=== PATIENT | male | born 1985 | race Caucasian/White ===

== ENCOUNTER 2017-11-26 07:33 | Emergency (ER) | payer MEDICAID ==
[2017-11-26] MEDS ORDERED: ALBUTEROL SULFATE (0.083%) 2.5 MG/3 ML NEB INH ONE (07:55)
[2017-11-26] MEDS ORDERED: KETOROLAC 30 MG/ML VIAL IVP ONE (07:56)
[2017-11-26 08:06] LABS: HEMATOCRIT 46.9 % (42.0-52.0); HEMOGLOBIN 16.4 gm/dl (14.0-18.0); MEAN CELL VOLUME 86.2 fl (81-97); MEAN CORPUSCULAR HEMOGLOBIN 30.1 pg (27-33); MEAN PLATELET VOLUME 10.1 fl (7.4-10.4); PLATELET COUNT 156 K/uL (130-400); RED BLOOD COUNT 5.44 M/uL (4.40-5.70); RED CELL DISTRIBUTION WIDTH 13.7 % (11.5-14.5); WHITE BLOOD COUNT W/O DIFF 5.3 K/uL (4.2-12.2)
--- NOTE | 2017-11-26 08:12 | Emergency Department Record ---
History of Present Illness - General Chief Complaint: Difficulty Breathing Stated Complaint: LENY/LEG PAIN Time Seen by Provider: 11/26/17 07:44 Source: Patient Mode of Arrival: Ambulatory Limitations: No limitations - History of Present Illness Initial Comments: The patient is here due to L posterior chest sharp stabbing pain for about 5 hours. The onset was at 3am today. The pain is worse with breathing and the patient feels that he cannot take a deep breath. He denies any anterior CP, but does feel mildly SOB at times with the pleuritic L posterior chest pain. He also has been having L calf pain for about 3 weeks after getting hit there with a hockey puck. Complaint: Shortness of breath Onset/Timin -: Days(s) Severity: Moderate Severity scale (1-10): 9 Quality: Aching Consistency: Constant Improves With: Bronchodilators - Related Data Home Medications Medication Instructions Recorded Confirmed Last Taken Albuterol Sulfate [Ventolin Hfa] 1 - 2 puff IH .EVERY 4-6 HRS PRN 11/26/1711/2611/26/17 Allergies Allergy/AdvReac Type Severity Reaction Status Date / Time aspirin Allergy SWELLING Verified 11/26/17 07:43 OF THE TONGUE Travel Screening - Travel/Exposure Within Last 30 Days Have you traveled within the last 30 days?: No - Travel/Exposure Within Last Year Have you traveled outside the [place] in the last year?: No - Additonal Travel Details Have you been exposed to anyone with a communicable illness?: No - Travel Symptoms Symptom Screening: None Review of Systems Constitutional: Denies: Chills, Fever Eyes: Denies: Eye discharge ENT: Denies: Congestion Respiratory: Reports: Dyspnea. Denies: Cough, Hemoptysis Past Medical History - SOCIAL HISTORY Smoking Status: Light tobacco smoker (<10/day) Alcohol Use: None Drug Use: None - RESPIRATORY Hx Asthma: Yes - CARDIOVASCULAR Hx Irregular Heartbeat: Yes (had heart monitor 2 months ago) Comment:: murmur - NEURO Comment:: concussion 2017 - GI Hx GI Disorders: No - Hx Kidney Stones: Yes (x49) - ENDOCRINE Hx Endocrine Disorders: No - MUSCULOSKELETAL Hx Musculoskeletal Disorders: No - PSYCH Hx Psych Problems: No - HEMATOLOGY/ONCOLOGY Hx Hematology/Oncology Disorders: No Family Medical History Any Significant Family History?: Yes Hx Stroke: Grandparents Physical Exam - General General Appearance: Alert, Oriented x3, Cooperative, No acute distress - Head Head exam: Atraumatic, Normocephalic, Normal inspection - Eye Eye exam: Normal appearance, PERRL - Neck Neck exam: Normal inspection, Full ROM. negative: Tenderness - Respiratory Respiratory exam: Normal lung sounds bilaterally. negative: Decreased breath sounds, Respiratory distress, Rhonchi, Stridor, Wheezes - Cardiovascular Cardiovascular Exam: Regular rate, Normal rhythm, Normal heart sounds - GI/Abdominal GI/Abdominal exam: Soft, Normal bowel sounds. negative: Tenderness - Extremities Extremities exam: Normal inspection (There are no areas of swelling, bruising or erythema.), Calf tenderness (R calf only.), Normal capillary refill, Tenderness (There is mild tenderness to palpation over the R calf.), Other (The lower legs are NVI distally.) Course Vital Signs 11/26/17 07:36 Temperature 98.4 F Pulse Rate 94 H Respiratory 18 Rate Blood Pressure 142/99 Pulse Ox 99 - Reevaluation(s) Reevaluation #1: I did inform the patient of the positive test results and the need for hospital admission. He is not sure if he wants to be admitted here due to living in [place] and will decide. He also states the pain is mildly improved and he is having no trouble breathing. 11/26/17 09:29 Reevaluation #2: The patient is doing very well at this time. He would like to go to [facility] [place] so I did discuss the case with Dr. Martell and she does accept the patient to [facility] [place] as a direct admission. 11/26/17 09:46 Medical Decision Making - Data Complexity MDM Data: Labs Ordered and/or Reviewed, X-Ray Ordered and/or Reviewed - Lab Data Result diagrams: 11/26/17 08:00 11/26/17 08:00 - Radiology Data Radiology results: Report reviewed (Chest CT: Mult area's of PE with the worst area in the LLL. Leg doppler: DVT in the distal Popliteal area.) Disposition Disposition: Transfer Clinical Impression: Pulmonary embolism Qualifiers: Chronicity: unspecified Acute cor pulmonale presence: without acute cor pulmonale Disposition: Acute Care Hospital Transfer Transfer To: [facility] [place] Reason For Transfer: Patient request. Accepting Physician: Jayshree Time Discussed w/Accepting Physician: 09:47 Condition: (2) Stable Forms: Patient Portal Access Time of Disposition: 09:47 Quality - Quality Measures Quality Measures: N/A - Blood Pressure Screening View Details: Yes Does Patient Have Any of the Following: No Blood Pressure Classification: Hypertensive Reading Systolic Measurement: 142 Diastolic Measurement: 99 Screening for High Blood Pressure: < First Hypertensive BP, F/U Documented > [ G8950] First Hypertensive Follow-up Interventions: Referral to alternative/primary care provider.
[2017-11-26 08:21] LABS: BLOOD UREA NITROGEN 11 mg/dL (6-20); CREATININE 0.9 mg/dL (0.7-1.2); EST GLOMERULAR FILTRATION RATE > 60 mL/min
[2017-11-26 08:24] LABS: GLUCOSE,RANDOM 100 mg/dL (74-109)
[2017-11-26 08:25] LABS: INR 0.9; PARTIAL THROMBOPLASTIN TIME 28.6 SECONDS (24.5-39.1); PROTHROMBIN TIME (PATIENT) 10.1 SECONDS (9.5-12.1)
[2017-11-26] MEDS ORDERED: HEPARIN SODIUM 1000 UNIT/1 ML 10ML VIAL IVP ONE (08:28)
[2017-11-26] MEDS ORDERED: HEPARIN SODIUM/D5W 25,000 UNITS/500 ML BAG IV SCH (08:30)
[2017-11-26] MEDS ORDERED: HYDROMORPHONE HCL 2 MG/ML VIAL IVP ONE (09:19)
--- NOTE | 2017-11-26 19:29 | US VENOUS DOPPLER REPORT ---
EXAM: ULTRASOUND VENOUS DOPPLER LOWER EXT RT HISTORY: RIGHT CALF PAIN AND RIGHT THIGH PAIN SINCE GETTING HIT WITH A HOCKEY PUCK TWO WEEKS AGO. TECHNIQUE: Emergency venous Doppler ultrasound of the right lower extremity performed with color-flow and spectral analysis Doppler utilized. Compression and flow augmentation maneuvers were also performed in the thigh and popliteal region. COMPARISON: None. FINDINGS: The venous anatomy from the inguinal region down through the upper popliteal region appears unremarkable with flow seen throughout, and with flow augmentation and compressibility evident. However, in the distal popliteal, there does appear to be occluding thrombus with a lack of compressibility and also lack of flow in this segment and also with no flow augmentation. The peroneal vein also appears occluded throughout the calf. Flow is seen within the posterior and anterior tibial veins in the calf. IMPRESSION: 1. THERE IS EVIDENCE OF DVT IN THE DISTAL POPLITEAL VEIN WELL IN THE PERONEAL VEIN OF THE CALF. 2. ELSEWHERE, THE DEEP VENOUS ANATOMY APPEARS PATENT WITH NO DVT IDENTIFIED ELSEWHERE ON THE RIGHT. JOB NUMBER: [id number] MTDD
--- NOTE | 2017-11-26 19:37 | CT ANGIOGRAM REPORT ---
EXAM: CT ANGIOGRAM CHEST CTA w contrast HISTORY: PLEURITIC LEFT CHEST PAIN, DIFFICULTY IN BREATHING, ELEVATED D-DIMER, DVT IN THE RIGHT POPLITEAL REGION AND PERONEAL VEIN OF THE RIGHT CALF. POSSIBLE PE. TECHNIQUE: CTA of the chest performed following the intravenous administration of 74 mL of Omnipaque-350 as the IV contrast. Postprocessing on an independent workstation was performed with multiple 3D MIP series obtained. COMPARISON: None. FINDINGS: There is some peripheral PE seen in the right lower lobe. There is also a small amount in the right upper lobe. There is a moderate amount of PE evident in the more proximal left lower lobe extending into the periphery and also some in the lingula. No PE identified in the main pulmonary artery or right and left main pulmonary arteries themselves. No thoracic aortic aneurysm or dissection is seen. No pleural or pericardial effusion evident. No hilar or mediastinal adenopathy seen. Post-op cholecystectomy. No pneumothorax is evident. Calcified granulomas are seen in the right lower lobe and there are numerous calcified right hilar and mediastinal lymph nodes, all consistent with old granulomatous disease. There are some calcified splenic granulomas present as well. There is some mild bibasilar streaky atelectasis or infiltrate, left greater than right. IMPRESSION: 1. EVIDENCE OF BILATERAL PE WITH THE GREATEST AMOUNT SEEN IN THE LEFT LOWER LOBE BUT ALSO PRESENT IN THE LINGULA, RIGHT UPPER LOBE AND RIGHT LOWER LOBE. 2. CALCIFIED GRANULOMAS RIGHT BASE WITH CALCIFIED RIGHT HILAR AND MEDIASTINAL LYMPH NODES WELL CALCIFIED SPLENIC GRANULOMAS, ALL CONSISTENT WITH OLD GRANULOMATOUS DISEASE. 3. POST-OP CHOLECYSTECTOMY. 4. MILD BIBASILAR STREAKY ATELECTASIS OR INFILTRATE. JOB NUMBER: [id number] [facility]
--- NOTE | 2017-11-28 09:21 | Emergency Department Record ---
History of Present Illness - General Chief Complaint: Difficulty Breathing Stated Complaint: LENY/LEG PAIN Time Seen by Provider: 11/26/17 07:44 Source: Patient Mode of Arrival: Ambulatory Limitations: No limitations - History of Present Illness Onset/Timin -: Days(s) Severity: Moderate Severity scale (1-10): 9 Quality: Aching Consistency: Constant Improves With: Bronchodilators - Related Data Home Medications Medication Instructions Recorded Confirmed Last Taken Albuterol Sulfate [Ventolin Hfa] 1 - 2 puff IH .EVERY 4-6 HRS PRN 11/26/1711/2611/26/17 Allergies Allergy/AdvReac Type Severity Reaction Status Date / Time aspirin Allergy SWELLING Verified 11/26/17 07:43 OF THE TONGUE Travel Screening - Travel/Exposure Within Last 30 Days Have you traveled within the last 30 days?: No - Travel/Exposure Within Last Year Have you traveled outside the [place] in the last year?: No - Additonal Travel Details Have you been exposed to anyone with a communicable illness?: No - Travel Symptoms Symptom Screening: None Review of Systems Constitutional: Denies: Chills, Fever Eyes: Denies: Eye discharge ENT: Denies: Congestion Respiratory: Reports: Dyspnea. Denies: Cough, Hemoptysis Cardiovascular: Reports: Chest pain Endocrine: Denies: Fatigue Gastrointestinal: Denies: Abdominal pain Genitourinary: Denies: Hematuria Musculoskeletal: Denies: Back pain Skin: Denies: Bruising Neurological: Denies: Headache Psychiatric: Denies: Anxiety Past Medical History - SOCIAL HISTORY Smoking Status: Light tobacco smoker (<10/day) Alcohol Use: None Drug Use: None - RESPIRATORY Hx Asthma: Yes - CARDIOVASCULAR Hx Irregular Heartbeat: Yes (had heart monitor 2 months ago) Comment:: murmur - NEURO Comment:: concussion 2017 - GI Hx GI Disorders: No - Hx Kidney Stones: Yes (x49) - ENDOCRINE Hx Endocrine Disorders: No - MUSCULOSKELETAL Hx Musculoskeletal Disorders: No - PSYCH Hx Psych Problems: No - HEMATOLOGY/ONCOLOGY Hx Hematology/Oncology Disorders: No Family Medical History Any Significant Family History?: Yes Hx Stroke: Grandparents Physical Exam - General Limitations: No limitations Course Vital Signs 11/26/17 11/26/17 11/26/17 07:36 08:58 10:27 Temperature 98.4 F Pulse Rate 94 H Pulse Rate [ 80 62 Pulse Ox Probe] Respiratory 18 18 20 Rate Blood Pressure 142/99 Blood Pressure 143/90 138/86 [Right Arm] Pulse Ox 99 95 96 Medical Decision Making - Lab Data Result diagrams: 11/26/17 08:00 11/26/17 08:00 Lab Results 11/26/17 11/26/17 11/26/17 Range/Units 08:00 08:00 08:00 WBC 5.3 (4.2-12.2) K/uL RBC 5.44 (4.40-5.70) M/uL Hgb 16.4 (14.0-18.0) gm/dl Hct 46.9 (42.0-52.0) % MCV 86.2 (81-97) fl MCH 30.1 (27-33) pg MCHC 35.0 (32-36) g/dl RDW 13.7 (11.5-14.5) % Plt Count 156 (130-400) K/uL MPV 10.1 (7.4-10.4) fl Neutrophils % 60.0 (47-80) % Eosinophils % Not Reportable Basophils % Not Reportable Lymphocytes 30.0 (16-45) % Monocytes 9.0 (0-9) % Eosinophil Count 1.0 (0-6) % PT 10.1 (9.5-12.1) SECONDS INR 0.9 APTT 28.6 (24.5-39.1) SECONDS D-Dimer 2.67 H (0-0.59) mg/L FEU Sodium 142 (136-145) mmol/L Potassium 3.9 (3.4-4.5) mmol/L Chloride 104 (98-107) mmol/L Carbon Dioxide 25.0 (22-29) mmol/L Anion Gap 13.0 (7-16) BUN 11 (6-20) mg/dL Creatinine 0.9 (0.7-1.2) mg/dL Estimated GFR > 60 mL/min Random Glucose 100 (74-109) mg/dL Calcium 9.1 (8.6-10.0) mg/dL Disposition Clinical Impression: Pulmonary embolism Qualifiers: Chronicity: unspecified Acute cor pulmonale presence: without acute cor pulmonale Disposition: Acute Care Hospital Transfer Condition: (2) Stable Forms: Patient Portal Access Quality - Quality Measures Quality Measures: N/A - Blood Pressure Screening View Details: Yes Does Patient Have Any of the Following: No Blood Pressure Classification: Hypertensive Reading Systolic Measurement: 142 Diastolic Measurement: 99 Screening for High Blood Pressure: < First Hypertensive BP, F/U Documented > [ G8950] First Hypertensive Follow-up Interventions: Referral to alternative/primary care provider.
== END 2017-11-26 10:18 | disposition short-term general hospital (02) ==
LOC: ER 07:33
DX: I82.432 Acute embolism and thrombosis of left popliteal vein (principal); R06.02 Shortness of breath; M79.662 Pain in left lower leg; R01.1 Cardiac murmur, unspecified; F17.210 Nicotine dependence, cigarettes, uncomplicated
CPT/HCPCS: 99285; 96365; 96375; 99284; 85730; 85610; 80048; 85379; 85027; 93971; 71275; Q9967; J1885; J1170

== ENCOUNTER 2019-10-19 21:42 | Emergency (ER) | payer MEDICAID ==
[2019-10-19] MEDS ORDERED: DEXAMETHASONE SOD PHOSPHATE 10MG/ML VIAL PO ONE (21:48)
[2019-10-19] MEDS ORDERED: AZITHROMYCIN 500 MG TABLET PO ONE (21:48)
[2019-10-19] MEDS ORDERED: IPRATROPIUM/ALBUTEROL (0.5MG/3MG) NEB INH ONE (21:48)
--- NOTE | 2019-10-19 21:55 | Emergency Department Record ---
History of Present Illness - General Chief complaint: ENT Stated complaint: SORE THROAT Time Seen by Provider: 10/19/19 21:44 Source: Patient Mode of Arrival: Ambulatory Limitations: No limitations - History of Present Illness Initial comments: 34 yo male presents with a sore throat for a two days. He has nasal congestion and cough. He does not think he has had any fever. He can feel the drainage at night when he lays down. The cough has been dry so far. No rash. No significant swelling of the cervical lymph nodes. No nausea, vomiting or diar obie. He is not short of breath. He has asthma since he was a child. He has used his inhaler without much change in the symptoms. He has history of PE is 2018. He is on Xarelto. He has been compliant. No leg pain, calf pain, or leg swelling. MD complaint: Sore throat -: Days(s) (2) Location: Other (throat) Severity: Moderate Quality: Aching Consistency: Constant Improves with: None Worsens with: Other (laying down worsens drainage and throat symptoms) - Related Data Home Medications Medication Instructions Recorded Confirmed Last Taken Omeprazole 40 mg PO DAILY 10/19/19 10/19/19 10/19/19 Rivaroxaban [Xarelto] 10 mg PO DAILY 10/19/19 10/19/19 10/19/19 Previous Rx's Medication Instructions Recorded Azithromycin [Zithromax] 250 mg PO DAILY #4 tablet 10/19/19 Allergies Allergy/AdvReac Type Severity Reaction Status Date / Time aspirin Allergy SWELLING Verified 10/19/19 21:48 OF THE TONGUE Review of Systems Constitutional: Denies: Chills, Fever, Malaise, Weakness Eyes: Denies: Eye discharge ENT: Reports: Congestion, Throat pain. Denies: Dental pain, Ear pain, Epistaxis Respiratory: Reports: Cough. Denies: Dyspnea, Hemoptysis, Stridor, Wheezes Cardiovascular: Denies: Chest pain, Edema, Palpitations, Syncope Endocrine: Denies: Fatigue, Polydipsia, Polyuria Gastrointestinal: Denies: Abdominal pain, Diarrhea, Nausea, Vomiting Genitourinary: Denies: Dysuria, Frequency, Hematuria Musculoskeletal: Denies: Arthralgia, Back pain, Myalgia, Neck pain Skin: Denies: Bruising, Change in color, Rash Neurological: Denies: Headache, Weakness Psychiatric: Denies: Anxiety Hematological/Lymphatic: Denies: Easy bleeding, Easy bruising Past Medical History - SOCIAL HISTORY Smoking Status: Light tobacco smoker (<10/day) Drug Use: None - RESPIRATORY Hx Asthma: Yes - CARDIOVASCULAR Hx Irregular Heartbeat: Yes (had heart monitor 2 months ago) Comment:: murmur - NEURO Comment:: concussion 2017 - GI Hx GI Disorders: No - Hx Kidney Stones: Yes (x49) - ENDOCRINE Hx Endocrine Disorders: No - MUSCULOSKELETAL Hx Musculoskeletal Disorders: No - PSYCH Hx Psych Problems: No - HEMATOLOGY/ONCOLOGY Hx Hematology/Oncology Disorders: No Family Medical History Hx Stroke: Grandparents Physical Exam - General General Appearance: Alert, Oriented x3, Cooperative, No acute distress Limitations: No limitations - Head Head exam: Atraumatic, Normal inspection - Eye Eye exam: Normal appearance, PERRL. negative: Conjunctival injection, Periorbit al swelling, Scleral icterus - ENT ENT exam: Normal exam, Mucous membranes moist Ear exam: Normal external inspection Nasal Exam: Discharge. negative: Dried blood Mouth exam: Normal external inspection Teeth exam: Normal inspection Throat exam: Tonsillar erythema. negative: Normal inspection, Tonsillomegaly, Tonsillar exudate, R peritonsillar mass, L peritonsillar mass - Neck Neck exam: Normal inspection. negative: Lymphadenopathy - Respiratory Respiratory exam: Normal lung sounds bilaterally, Wheezes (mild expiratory). negative: Accessory muscle use, Chest wall tenderness, Decreased breath sounds, Prolonged expiratory, Respiratory distress, Rhonchi, Stridor - Cardiovascular Cardiovascular Exam: negative: Regular rate, Normal rhythm, Normal heart sounds Peripheral Pulses: 2+: Radial (R), Radial (L) - GI/Abdominal GI/Abdominal exam: Soft. negative: Tenderness - Rectal Rectal exam: Deferred - exam: Deferred - Extremities Extremities exam: negative: Calf tenderness, Pedal edema, Tenderness - Back Back exam: Denies: CVA tenderness (R), CVA tenderness (L) - Neurological Neurological exam: Alert, Oriented X3 - Psychiatric Psychiatric exam: Normal affect, Normal mood. negative: Agitated, Anxious - Skin Skin exam: Dry, Intact, Normal color, Warm Course - Reevaluation(s) Reevaluation #1: 10/19/19 21:54 The vitals were reviewed No fever, tachycardia or hypoxia The patient's symptoms are consistent with tonsillitis based on symptoms and exam. His presentation is not consistent with PE. 10/19/19 22:08 The patient was checked after the treatment. He subjectively feels improved. Lungs are clear. The minimal wheeze is gone. We discussed home care, reasons for a recheck and return to the ED. Given no fever, hypoxia or tachycadia no CXR indicated at this time We discussed returning if he has any concerns he is not improving. Disposition Disposition: Discharge Clinical Impression: Tonsillitis, Asthmatic bronchitis Disposition: Home, Self-Care Condition: (1) Good Instructions: Acute Bronchitis (ED) Additional Instructions: Review this ER visit and the tests performed with your family doctor Call your doctor for the next available follow up appointment Return to the ER for a recheck immediately if worse, any new concerns or questions Take the prescriptions provided as directed Prescriptions: Azithromycin [Zithromax] 250 mg PO DAILY #4 tablet Forms: Patient Portal Access Time of Disposition: 22:10 Quality - Quality Measures Quality Measures: N/A - Blood Pressure Screening Does Patient Have Any of the Following: No Blood Pressure Classification: Hypertensive Reading Systolic Measurement: 153 Diastolic Measurement: 97 Screening for High Blood Pressure: < Pre-Hypertensive BP, F/U Documented > [G8950] Pre-Hypertensive Follow-up Interventions: Referral to alternative/primary care provider.
== END 2019-10-19 22:14 | disposition home or self-care (01) ==
LOC: ER 21:42
DX: J03.90 Acute tonsillitis, unspecified (principal); J45.909 Unspecified asthma, uncomplicated; F17.210 Nicotine dependence, cigarettes, uncomplicated
CPT/HCPCS: 99283 ×2; 94640; J1100